=== PATIENT | male | born 1955 | race Caucasian/White ===

== ENCOUNTER → 2023-03-27 | Outpatient (CLI) | payer OTHER, MEDICAID | END | disposition home or self-care (01) | LOC: CT 13:00 | PROVIDERS: ATTEND Internal Medicine Critical Care Medicine | DX: Z12.2 Encounter for screening for malignant neoplasm of respiratory organs (principal); Z87.891 Personal history of nicotine dependence; R91.8 Other nonspecific abnormal finding of lung field; J44.9 Chronic obstructive pulmonary disease, unspecified; Z68.29 Body mass index [BMI] 29.0-29.9, adult ==

== ENCOUNTER → 2024-04-10 | Outpatient (CLI) | payer OTHER, MEDICAID ==
[~2024-04-10] MED LIST: ANORO ELLIPTA1 EACH NEB; ASPIRIN CHEWABL81 MG PO; FLONASE ALLERG9.9 ML NAS; HYDR25T PO; LOVASTATIN40 MG PO; METFORMIN HYDR500 MG PO; OMEPRAZOLE MAGN20 MG PO; TAMIFLU 75MG CA75 MG PO; VENTOLIN 02.5 MG/3 M INH; ZESTRIL30 M3 PO
== END | disposition home or self-care (01) ==
LOC: CT 11:00
PROVIDERS: ATTEND Internal Medicine Critical Care Medicine
DX: Z12.2 Encounter for screening for malignant neoplasm of respiratory organs (principal); J43.2 Centrilobular emphysema; R91.8 Other nonspecific abnormal finding of lung field; I25.10 Atherosclerotic heart disease of native coronary artery without angina pectoris; Z87.891 Personal history of nicotine dependence

== ENCOUNTER → 2024-05-16 | Day surgery (SDC) | payer OTHER, MEDICAID ==
[~2024-05-16] VITALS: Ht 172.7 cm; Wt 81.6 kg
[~2024-05-16] MED LIST changes: +Albuterol Sulf/Ipratropium 3 ML VIAL NEB ONE; +Albuterol Sulfate 1.25 MG/3 ML VIAL NEB ONE; +Albuterol Sulfate 2.5 MG/0.5 ML VIAL NEB ONE; +Lactated Ringer's Solution 500 ML IV ONE; +Lidocaine Hydrochloride 4% 5 ML AMP NEB ONE; +Lidocaine Hydrochloride 4% 5 ML AMP ONE; +PROPOFOL 200 MG/20 ML VIAL IV ONE
[2024-05-16 08:59] VITALS: BP 135/89
[2024-05-16 11:26] VITALS: BP 153/78
[2024-05-16 11:36] VITALS: BP 109/62
[2024-05-16 12:00] VITALS: BP 118/79
[2024-05-17 17:03] LABS: ACID FAST SPEC PROCESSING Concentration (.)
== END | disposition home or self-care (01) ==
LOC: SDC 05-13 08:45
PROVIDERS: ATTEND Internal Medicine Critical Care Medicine
DX: J98.11 Atelectasis (principal); I10 Essential (primary) hypertension; E78.00 Pure hypercholesterolemia, unspecified; J44.1 Chronic obstructive pulmonary disease with (acute) exacerbation; K21.9 Gastro-esophageal reflux disease without esophagitis; F17.210 Nicotine dependence, cigarettes, uncomplicated; Z98.890 Other specified postprocedural states; Z79.82 Long term (current) use of aspirin; Z79.84 Long term (current) use of oral hypoglycemic drugs; Z79.899 Other long term (current) drug therapy; Z80.1 Family history of malignant neoplasm of trachea, bronchus and lung